=== PATIENT | female | born 1965 | race Hispanic/Latino ===

== ENCOUNTER 2019-05-17 19:37 | Emergency (ER) | payer OTHER, SELFPAY ==
[2019-05-17 19:46] VITALS: BP 187/71; PULSE 68; RESP 20; TEMP 36.6; O2SAT 100
--- NOTE | 2019-05-17 21:42 | ED.GENADULT ---
HPI - General Adult General Chief complaint: Unspecified Stated complaint: cough, sorethroat Time Seen by Provider: 05/17/19 20:04 Source: patient Mode of arrival: ambulatory Limitations: no limitations History of Present Illness HPI narrative: Patient is a 54-year-old female presents to the emergency department with complaint of cough and some mild irritation in her throat. Patient reports she has had this cough for 2 months. Patient has been in [place] since November and just returned home 1 week ago. Patient states she has a history of seasonal allergies and feels this is due to her allergies. Patient reports minor irritation in her throat but denies frankly having a sore throat. She denies any fever,, chills, sweats, shortness of breath, nausea, vomiting, diarrhea, headache, myalgias, or any other symptoms. She states the cough is generally only present at nighttime when she lies down. Onset (ago): month(s) (2) Related Data Home Medications Medication Instructions Recorded Confirmed captopril 05/17/19 citalopram mg 05/17/19 clonidine HCl 05/17/19 glipizide mg 05/17/19 insulin glargine [Basaglar KwikPen unit SUBCUT 05/17/19 U-100 Insulin] isosorbide dinitrate mg 05/17/19 metformin mg PO 05/17/19 metoprolol succinate PO 05/17/19 Allergies Allergy/AdvReac Type Severity Reaction Status Date / Time No Known Allergies Allergy Unverified 07/17/16 05:10 Review of Systems Review of Systems: All systems reviewed & are unremarkable except as noted in HPI and below Constitutional: Constitutional: Denies chills, Denies excessive sweating and Denies fever(s) ENT: Denies nasal congestion, Denies nasal discharge and Reports sore throat (Mild irritation, denying pain) Cardiovascular: Cardiovascular: Denies chest pain Respiratory: Respiratory: Reports cough and Denies dyspnea Gastrointestinal: Gastrointestinal: Denies abdominal pain, Denies diarrhea, Denies nausea and Denies vomiting Musculoskeletal: Musculoskeletal: Denies myalgias [facility] Past Medical History Medical History (Updated 05/17/19 @ 21:50 by Luci Hatch MD) Anxiety Depression Diabetes mellitus Hypertension Family History Family History (Updated 08/25/10 @ 16:57 by DOCTOR UNKNOWN) Grandparent Diabetes mellitus Social History Social History Alcohol intake: current Gender identity (if verbalized by the patient): Female Exam Const: General: cooperative, no acute distress and alert Nutritional Appearance: well nourished Orientation/consciousness: patient oriented x3 Limitations: no limitations Resp: Effort & Inspection: normal respiratory effort Auscultation: clear to auscultation bilaterally Cardio: Rate: regular rate Rhythm: regular rhythm Skin: General skin exam: normal color Neuro: General: patient oriented x3 Cognition (Neuro): normal cognition Speech: normal speech Extrem: General: normal to inspection, full ROM and no clubbing, cyanosis or edema Psych: Mental Status: mental status grossly normal Affect: normal affect Attitude: cooperative Course Course Emergency Course: Patient has no concerning illness symptoms. Her symptoms do can sound consistent with her report of seasonal allergies as her cough is intermittent at nighttime. Patient is well in appearance. Discussed symptomatic management with antihistamines. Vital Signs Vital signs: Vital Signs Temperature 97.9 F 05/17/19 19:46 Pulse Rate 68 05/17/19 19:46 Respiratory Rate 20 05/17/19 19:46 Blood Pressure 187/71 H 05/17/19 19:46 Pulse Oximetry 100 05/17/19 19:46 Temperature 97.9 F 05/17/19 19:46 Pulse Rate 68 05/17/19 19:46 Respiratory Rate 20 05/17/19 19:46 Blood Pressure 187/71 H 05/17/19 19:46 Pulse Oximetry 100 05/17/19 19:46 Medical Decision Making Vital Signs Vital Signs: Vital Signs Temperature 97.9 F 05/17/19 19:46 Pulse Rate 68 05/17/19 19:46 Respiratory Rate 20 0
== END 2019-05-17 22:32 | disposition home or self-care (01) ==
LOC: ANHED 20:21
PROVIDERS: Emergency Provider Emergency Medicine
DX: R05 Cough (principal); E11.9 Type 2 diabetes mellitus without complications; Z79.4 Long term (current) use of insulin; Z79.84 Long term (current) use of oral hypoglycemic drugs; F41.9 Anxiety disorder, unspecified
CPT/HCPCS: 87081; 87420; 87804; 87880; 99283

== ENCOUNTER 2023-01-08 16:41 | Emergency (ER) | payer OTHER, SELFPAY ==
--- NOTE | 2023-01-08 16:43 | ED.URI ---
HPI - URI/Sore Throat General Chief Complaint: Upper Respiratory Infection Stated Complaint: throat hurts,headache,body aches Time Seen by Provider: 01/08/23 16:43 Source: patient Mode of arrival: ambulatory Limitations: no limitations History of Present Illness HPI Narrative: Else is a 57-year-old female patient presenting to the clinic today with complaints of sore throat, headache, nasal congestion, chills,dry cough, and body aches times 2-3 days. Has for of 38.3? C in the clinic today. She denies any shortness of breath or chest pain. MD elicited complaint: fever, cough, sore throat, nasal congestion and other (Body aches, headache, chills) Related Data Home Medications Medication Instructions Recorded Confirmed captopril 50 mg tablet 05/17/19 citalopram 40 mg tablet mg 05/17/19 clonidine HCl 0.2 mg tablet 05/17/19 insulin glargine 100 unit/mL (3 unit subcut 05/17/19 mL) subcutaneous pen (Basaglar KwikPen U-100 Insulin) isosorbide dinitrate 30 mg tablet mg 05/17/19 metformin 500 mg tablet,extended mg PO 05/17/19 release 24 hr metoprolol succinate 50 mg PO 05/17/19 tablet,extended release 24 hr ammonium lactate 12 % lotion topical 01/08/23 aspirin 81 mg chewable tablet 01/08/23 atorvastatin 40 mg tablet mg 01/08/23 buspirone 10 mg tablet mg 01/08/23 empagliflozin 25 mg tablet mg 01/08/23 (Jardiance) ezetimibe 10 mg tablet mg 01/08/23 ferrous sulfate 325 mg (65 mg mg 01/08/23 iron) tablet (FeroSul) fluticasone propionate 50 intranasal 01/08/23 mcg/actuation nasal spray,suspension folic acid 1 mg tablet 01/08/23 gabapentin 600 mg tablet mg 01/08/23 insulin NPH isoph U-100 human 100 unit subcut 01/08/23 unit/mL (3 mL) subcutaneous pen (Humulin N NPH U-100 Insulin KwikPen) loratadine 10 mg tablet mg 01/08/23 montelukast 10 mg tablet mg 01/08/23 nortriptyline 10 mg capsule mg 01/08/23 omeprazole 20 mg capsule,delayed mg 01/08/23 release thiamine HCl (vitamin B1) 100 mg mg 01/08/23 tablet (Vitamin B-1) Allergies Allergy/AdvReac Type Severity Reaction Status Date / Time No Known Allergies Allergy Unverified 01/08/23 16:45 Review of Systems Review of Systems: Pertinent positives per HPI. Patient denies any rash, visual changes, dizziness, shortness of breath, chest pain, palpitations, nausea, vomiting, diarrhea, constipation, abdominal pain, or any urinary issues. [facility] Past Medical History Medical History Anxiety Depression Diabetes mellitus Hypertension Family History Family History Grandparent Diabetes mellitus Social History Social History Alcohol intake: current Gender identity (if verbalized by the patient): Female Comments At the time of my signature, I reviewed and agree with the nursing past medical, surgical, social, and family history. There is no relevant family history pertinent to the patient complaint. Exam Narrative: General: Well-developed, overweight, in no apparent distress Head: Normocephalic, atraumatic Eyes: Pupils equally round and reactive to light bilaterally, EOM intact, sclera and conjunctive clear, no discharge, lids normal Ears: TMs intact and congested, ear canals clear, no drainage, grossly hearing normal. Nose: Nares patent, clear nasal discharge, no inflammation, no sinus tenderness. Mouth: Oral pharynx red without lesions or masses, good dentition, MMM. Neck: Supple, trachea midline, mild enlargement of anterior cervical nodes, no thyroid masses or goiter palpable. Cardio: Regular rate and rhythm, s1 and s2 normal, no murmur appreciated. Resp: Clear to auscultation bilaterally, no rhonchi, rales, wheezing or rubs Course Course Emergency Course: Portions of this record may have been created with voice re
[2023-01-08 16:51] VITALS: BP 93/68; PULSE 69; RESP 16; TEMP 38.3; O2SAT 99
== END 2023-01-08 17:30 | disposition home or self-care (01) ==
PROVIDERS: Emergency Provider Nurse Practitioner Family; PCP Registered Nurse
DX: B34.9 Viral infection, unspecified (principal); J06.9 Acute upper respiratory infection, unspecified; J02.9 Acute pharyngitis, unspecified; Z20.822 Contact with and (suspected) exposure to COVID-19; E11.9 Type 2 diabetes mellitus without complications; I10 Essential (primary) hypertension
CPT/HCPCS: 87081; 87426; 87804; 87880; 99213; C9803; G0463